=== PATIENT | female | born 1965 | race Caucasian/White ===

== ENCOUNTER 2023-04-23 12:25 | Outpatient (OUT) | payer OTHER, SELFPAY ==
[2023-04-24 11:53] LABS: BUN Creatinine Ratio 17.3; Calcium 9.2 mg/dL (8.5-10.1); Carbon Dioxide 26.1 mmol/L (21.0-32.0); Chloride 104 mmol/L (98-107); Estimated GFR (African America >60 (>=60); Estimated GFR (Non-African Ame >60 (>=60); Glucose 114 mg/dL (74-106); Potassium 4.1 mmol/L (3.5-5.1); Sodium 141 mmol/L (136-145)
== END 2023-04-23 12:26 | disposition home or self-care (01) ==
PROVIDERS: PCP Internal Medicine; Visit Provider Obstetrics & Gynecology
DX: Z01.810 Encounter for preprocedural cardiovascular examination (principal); Z01.812 Encounter for preprocedural laboratory examination; R10.2 Pelvic and perineal pain; N81.4 Uterovaginal prolapse, unspecified; N94.10 Unspecified dyspareunia
CPT/HCPCS: 36415; 80048; 80076; 85025; 85610; 85730; 86850; 86900; 86901; 93005

== ENCOUNTER 2023-04-30 06:33 | Day surgery (SDC) | payer OTHER, SELFPAY ==
--- NOTE | 2023-04-23 12:48 | ECG_ITS ---
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
[2023-04-23 13:08] VITALS: BP 110/62; PULSE 75; RESP 16; TEMP 36.4; O2SAT 95; BMI 30.7
[2023-04-23 13:34] LABS: Basophils Percent Auto 0.7 % (0.2-2.0); Eosinophils Absolute Auto 0.1 10^3/uL (0.0-0.7); Eosinophils Percent Auto 1.5 % (0.9-7.0); Hematocrit 36.1 % (36.0-48.0); Hemoglobin 11.6 g/dL (12.0-16.0); Immature Granulocytes Abs Auto 0.02 10^3/uL (0.00-0.03); Immature Granulocytes Pct Auto 0.3 % (0.0-0.5); Lymphocytes Absolute Auto 2.1 10^3/uL (1.2-3.8); Lymphocytes Percent Auto 34.1 % (20.5-60.0); Mean Corpuscular HGB Conc 32.1 g/dL (29.9-35.2); Mean Corpuscular Hemoglobin 27.8 pg (26.7-34.0); Mean Corpuscular Volume 86.6 fL (81.0-99.0); Mean Platelet Volume 9.9 fL (9.5-13.5); Monocytes Absolute Auto 0.5 10^3/uL (0.3-0.8); Monocytes Percent Auto 8.1 % (1.7-12.0); Neutrophils Absolute Auto 3.3 10^3/uL (1.4-6.5); Neutrophils Percent Auto 55.3 % (43.0-75.0); Platelet Count 251 10^3/uL (150-450); Red Blood Count 4.17 10^6/uL (4.20-5.40); Red Cell Distribution Width 14.5 % (11.0-15.0)
[2023-04-23 13:40] LABS: INR 0.93; Prothrombin Time 9.9 sec (9.0-11.6)
[2023-04-23 13:55] LABS: Partial Thromboplastin Time 26.4 sec (22.3-36.2)
[2023-04-23 14:26] LABS: Alanine Aminotransferase 25 U/L (14-59); Albumin Level 3.6 g/dL (3.4-5.0); Alkaline Phosphatase 98 U/L (46-116); Aspartate Amino Transferase 14 U/L (15-37); Bilirubin Direct 0.1 mg/dL (0.0-0.2); Bilirubin Total 0.4 mg/dL (0.2-1.0); Globulin 3.5 g/dL; Total Protein 7.1 g/dL (6.4-8.2)
[2023-04-30] VITALS (17 sets, daily range): BP systolic 142–159; BP diastolic 59–80; PULSE 72–87; RESP 6–19; TEMP 36.1–37.2; O2SAT 90–97
[2023-04-30 06:44] LABS: Basophils Absolute Auto 0.1 10^3/uL (0.0-0.1); Basophils Percent Auto 0.9 % (0.2-2.0); Eosinophils Absolute Auto 0.1 10^3/uL (0.0-0.7); Eosinophils Percent Auto 1.6 % (0.9-7.0); Hematocrit 37.8 % (36.0-48.0); Hemoglobin 12.2 g/dL (12.0-16.0); Immature Granulocytes Abs Auto 0.03 10^3/uL (0.00-0.03); Immature Granulocytes Pct Auto 0.4 % (0.0-0.5); Lymphocytes Absolute Auto 2.4 10^3/uL (1.2-3.8); Lymphocytes Percent Auto 30.5 % (20.5-60.0); Mean Corpuscular HGB Conc 32.3 g/dL (29.9-35.2); Mean Corpuscular Hemoglobin 27.7 pg (26.7-34.0); Mean Corpuscular Volume 85.7 fL (81.0-99.0); Mean Platelet Volume 9.9 fL (9.5-13.5); Monocytes Absolute Auto 0.7 10^3/uL (0.3-0.8); Monocytes Percent Auto 8.1 % (1.7-12.0); Neutrophils Absolute Auto 4.7 10^3/uL (1.4-6.5); Neutrophils Percent Auto 58.5 % (43.0-75.0); Platelet Count 275 10^3/uL (150-450); Red Blood Count 4.41 10^6/uL (4.20-5.40); Red Cell Distribution Width 14.6 % (11.0-15.0)
[2023-04-30 07:03] LABS: HCG Quantitative 6 mIU/mL
[2023-04-30 07:11] LABS: Glucometer 125 mg/dL (74-106)
[2023-04-30] MEDS: LACTATED RINGER'S SOLUTION 1,000 ML 50 ML IV (07:18)
[2023-04-30] MEDS: FAMOTIDINE/PF 20 MG/2 ML VIAL IV (07:28)
--- NOTE | 2023-04-30 07:33 | PC.NURSE ---
Dr. Salmeron informed of elevated quanatative numbers; no orders received
[2023-04-30] MEDS: SCOPOLAMINE 1 EACH PATCH.TD.3 1 PATCH TD (07:36)
[2023-04-30] MEDS: CEFAZOLIN SODIUM/DEXTROSE,ISO 2 GM/50 ML PIGGYBACK IV ×2 (07:55→16:33)
[2023-04-30] MEDS: LIDOCAINE HCL 1%-EPINEPHRINE 1:100,000 20 ML MDV INJ (08:47)
[2023-04-30] MEDS: 0.9 % SODIUM CHLORIDE 10 ML 30 ML INJ (08:48)
[2023-04-30] MEDS: ONDANSETRON PF 4 MG/2 ML VIAL IV (10:31)
[2023-04-30] MEDS: LACTATED RINGER'S SOLUTION 1,000 ML 125 ML IV (10:37)
[2023-04-30] MEDS: PROMETHAZINE HCL 25 MG/ML VIAL 12.5 MG IV (12:31)
[2023-04-30 16:24] LABS: Basophils Absolute Auto 0.1 10^3/uL (0.0-0.1); Basophils Percent Auto 0.4 % (0.2-2.0); Hematocrit 36.7 % (36.0-48.0); Hemoglobin 12.1 g/dL (12.0-16.0); Immature Granulocytes Abs Auto 0.08 10^3/uL (0.00-0.03); Immature Granulocytes Pct Auto 0.6 % (0.0-0.5); Lymphocytes Absolute Auto 0.9 10^3/uL (1.2-3.8); Lymphocytes Percent Auto 6.8 % (20.5-60.0); Mean Corpuscular Hemoglobin 27.9 pg (26.7-34.0); Mean Corpuscular Volume 84.6 fL (81.0-99.0); Mean Platelet Volume 9.9 fL (9.5-13.5); Monocytes Absolute Auto 0.4 10^3/uL (0.3-0.8); Monocytes Percent Auto 3.1 % (1.7-12.0); Neutrophils Absolute Auto 12.1 10^3/uL (1.4-6.5); Neutrophils Percent Auto 89.1 % (43.0-75.0); Platelet Count 273 10^3/uL (150-450); Red Blood Count 4.34 10^6/uL (4.20-5.40); Red Cell Distribution Width 14.3 % (11.0-15.0); White Blood Count 13.6 10^3/uL (4.0-11.0)
[2023-04-30] MEDS: IBUPROFEN 600 MG TABLET 800 MG PO (18:02)
[2023-04-30] MEDS: DOCUSATE SODIUM 100 MG CAPSULE PO (18:02)
--- NOTE | 2023-05-09 08:09 | PM.ONB ---
Brief Operative Note Date of procedure: 04/30/23 Pre-op diagnosis: uterine prolapse, vaginal fullness Post-op diagnosis: same as pre-op Procedure: NAME OF PROCEDURE: ? vNOTES hysterectomy with cystoscopy. PROCEDURE:? Patient was brought back to the operating room where she was given general anesthesia.? She was placed in the dorsolithotomy position, after being prepped and draped in a sterile fashion.? A Vargas catheter was placed.? A weighted speculum was placed posterior in the vagina.? The cervix was grasped anteriorly and posteriorly with two single tooth tenaculums and placed on traction.? A solution of Marcaine, lidocaine and epinephrine and saline was liberally infiltrated into the cervical vaginal junction.? The knife was then used to circumscribe the cervical vaginal junction and the posterior cul-de-sac was sharply entered without difficulty.? A long weighted duck tail speculum was placed and the peritoneum was tacked to the vaginal epithelium.? We then turned our attention to the uterosacral ligaments which were bilaterally cross clamped, transected and suture ligated and then were held with hemostats.? Attention was then turned to the anterior compartment, where the cervical vaginal junction was similarly divided, and the bladder was then sharply and bluntly dissected off the cervix and the lower uterine segment, and the anterior cul-de-sac was sharply entered.? The vaginal epithelium was tacked to the peritoneum.? Lateral attachments of the uterus were secured with Bekah clamps and suture ligated.? The retractors were then removed and were placed by the path inner ring anteriorly followed by posteriorly.? Once the ring was seated, the gel cap was placed and the laparoscopic ports were placed through this cap and the gas was allowed to insufflate the pelvis.? A GynLap was placed posteriorly to facilitate mobilization of the bowel, control bleeding.? This was later retrieved.? The LigaSure device was used to secure the lateral attachments of the uterus on the left side, including the cardinal ligaments and the uterine vasculature.? Once the utero-ovarian ligament was reached, we turned our attention to the right side where the LigaSure device was used to fully detach the uterus from the pelvic side wall.? Please note the ligasure was used to perform bilateral salpingectomy and oopherectomy, excellent hemostasis was noted. The ureters were seen visually; before, during and after the pedicles were created.? The ureters were bilaterally in normal locations, peristalsing. ?? Please note that the LigaSure was used on the patient?s left side to fully detach the uterus from the pelvic side wall.? The uterus was removed from the field.? The GynLap was also removed from the field.? The inner ring and gel port caps were removed and the vaginal retractors were replaced.? Lateral figure of eight sutures were placed bilaterally, where bleeding occurred, behind the ring, and no further sutures were needed.? The colpopexy was then carried out, passing a stitch posteriorly to the vaginal wall, capturing the left uterosacral ligament, going across the peritoneum posteriorly to the right and exiting out the vaginal wall posteriorly.? The vaginal cuff was closed in a single running locked stitch using 0 Monocryl, and the uterosacral ligaments were cut.? Once the vaginal cuff was fully closed, the uterosacral colpopexy stitch was then tied down tightly, elevating the vaginal cuff to the uterosacral ligaments in a satisfactory manner.? The Vargas catheter was removed and the patient was awakened and taken to recovery in excellent condition.? Sponge, lap and instruments counts correct x2.? Anesthesia: SARAN Surgeon: Pj Salmeron Funeral Service Practitioner/Embalmer: Erika Roche Estimated blood loss (mL): 100 Pathology: other (uterus, tubes and ovaries) Condition: stable Disposition: PACU
== END 2023-04-30 18:32 | disposition home or self-care (01) ==
LOC: SURGOUT 08:55 → MS 11:06
PROVIDERS: PCP Internal Medicine; Visit Provider Obstetrics & Gynecology
PROC: (CPT 58552; principal; 2023-04-30 07:45)
DX: N81.4 Uterovaginal prolapse, unspecified (principal); R10.2 Pelvic and perineal pain; N94.10 Unspecified dyspareunia; E11.9 Type 2 diabetes mellitus without complications; N72 Inflammatory disease of cervix uteri; N83.292 Other ovarian cyst, left side; N83.291 Other ovarian cyst, right side; Z79.84 Long term (current) use of oral hypoglycemic drugs; Z79.85 Long-term (current) use of injectable non-insulin antidiabetic drugs; Z98.51 Tubal ligation status
CPT/HCPCS: 58552; 36415; 82948; 84702; 85025; 88307; 94667; 94761; J2704

== ENCOUNTER 2024-01-21 13:48 | Outpatient (OUT) | payer OTHER, SELFPAY ==
--- NOTE | 2024-01-21 13:53 | MM_ITS ---
Patient Name: MEENA CALDERON MR#: [id number] : 1965 Exam Date: 01/21/2024 Ordering Doctor: DR Markell Sharma D.O. RADIOLOGY REPORT PROCEDURE: MM TOMOSYNTHESIS SCREENING BI COMPARISON: MG MAMM SCREEN 3D MARC CAD, 05/24/2021. MG MAMM SCREEN 3D MARC CAD, 10/08/2022. INDICATIONS: Screening Calculator Name NCI Breast Cancer Risk Assessment Tool 5 Year Breast Cancer Risk 1.20% Lifetime Breast Cancer Risk 6.70% Personal Breast Cancer No Personal Ovarian Cancer No Treatments None Family Cancers Grandfather-maternal with bone cancer at age 58. LOCATION: [facility] BREAST COMPOSITION: The breasts are heterogeneously dense,which may obscure small masses. FINDINGS: DIAGNOSTIC CATEGORY 2--BENIGN FINDING. NO CHANGE FROM COMPARISON. Scattered benign-appearing calcifications are present. Scattered benign-appearing lymph nodes are present. RIGHT BREAST: No significant suspicious finding. LEFT BREAST: No significant suspicious finding. RECOMMENDATIONS: ROUTINE MAMMOGRAM AND CLINICAL EVALUATION IN 12 MONTHS. PLEASE NOTE: A NORMAL MAMMOGRAM DOES NOT EXCLUDE THE POSSIBILITY OF BREAST CANCER. A CLINICALLY SUSPICIOUS PALPABLE LUMP SHOULD BE BIOPSIED. Dictated by: Cory Aguilera MD on 01/21/2024 at 15:40 Approved by: Cory Aguilera MD on 01/21/2024 at 15:41
== END 2024-01-21 13:49 | disposition home or self-care (01) ==
LOC: MAMMO 13:49
PROVIDERS: PCP Internal Medicine; Visit Provider Internal Medicine
DX: Z00.00 Encounter for general adult medical examination without abnormal findings (principal); Z12.31 Encounter for screening mammogram for malignant neoplasm of breast; Z80.8 Family history of malignant neoplasm of other organs or systems
CPT/HCPCS: 77063; 77067

== ENCOUNTER 2025-02-02 14:25 | Outpatient (OUT) | payer OTHER, SELFPAY ==
--- OUTSIDE RECORDS SUMMARY | 2025-02-02 14:27 | XMS_ITS | Clinical Summary ---
Author Organization [facility] Address [address] [place] [address] Care Team Providers Care Local Delivery Driver Name Role Phone Markell Sharma DO Primary Care Provider [phone] Allergies No known active allergies Medications dulaglutide (Trulicity) 0.75 MG/0.5ML solution pen-injector Trulicity Active metFORMIN (Glucophage) 1000 MG tablet 1 (one) time each day at the same time. Active Active Problems Problem Noted Date Diagnosed Date Equinus contracture of right ankle 02/18/2023 Hallux valgus (acquired), right foot 02/18/2023 Vaginal prolapse without uterine prolapse 2022 Family History Medical History Relation Name Comments Diabetes Maternal Grandmother Diabetes Mother Relation Name Status Comments Maternal Grandmother Mother Social History Tobacco Use Types Packs/Day Years Used Date Smoking Tobacco: Never Tobacco Cessation:Counseling Given: Not Answered Alcohol Use Standard Drinks/Week Comments Yes 0 (1 standard drink = 0.6 oz pure alcohol) 6 or moredrinks less than monthly; 3 or 4 drinks on typical day. Caffeine: 1-2 cups/day Comments Unknown Sex and Gender Information Value Date Recorded Sex Assigned at Not on file Legal Sex Female 8:22 PM EDT Gender Identity Not on file Sexual Orientation Not on file Last Filed Vital Signs Vital Sign Reading Time Taken Comments Blood Pressure 112/60 05/13/2023 2:47 PM EDT Pulse - - Temperature - - Respiratory Rate - - Oxygen Saturation - - Inhaled Oxygen Concentration - - Weight 66 kg (145 lb 6.4 oz) 06/11/2023 1:40 PM EDT Height 154.9 cm (5' 1 ) 06/11/2023 1:40 PM EDT Body Mass Index 27.47 06/11/2023 1:40 PM EDT Plan of Treatment Not on file Insurance [employer] Care Teams Local Delivery Driver Relationship Specialty Start Date End Date Markell Sharma DO PCP - General Internal Medicine 04/02/23
--- OUTSIDE RECORDS SUMMARY | 2025-02-02 14:27 | XMS_ITS | Encounter Summary ---
Author Organization [facility] Address [address] [place] [address] Care Team Providers Care Licensed Certified Orthotist Name Role Phone Markell Sharma DO Primary Care Provider [phone] Encounter Details Date Type Department Care Team (Late st Contact Info) Description 07/04/2016 FollowUp Telephone Encounter [facility] General Surgery [address] [place] [address] Lashae Fall RN Social History Tobacco Use Types Packs/Day Years Used Date Smoking Tobacco: Never Alcohol Use Standard Drinks/Week Comments No 0 (1 standard drink = 0.6 oz pur e alcohol) Comments No Sex and Gender Information Value Date Recorded Sex Assigned at Not on file Legal Sex Female 12:36 PM EDT Gender Identity Not on file Sexual Orientation Not on file documented as of this encounter Plan of Treatment Not on file documented as of this encounter Visit Diagnoses Not on filedocumented in this encounter Care Teams Licensed Certified Orthotist Relationship Specialty Start Date End Date Markell Sharma DO PCP - General 06/27/16 documented as of this encounter
--- OUTSIDE RECORDS SUMMARY | 2025-02-02 14:27 | XMS_ITS | Encounter Summary ---
Author Organization [facility] Address [address] [address] Care Team Providers Care Engineering Program Manager Name Role Phone Makrell Sharma DO Primary Care Provider [phone] Encounter Details Date Type Department Care Team (Late st Contact Info) Description 06/28/2016 PAT Telephone [facility] Pre-Admit Testing [address] [place] [address] Fady Peralta RN Social History Tobacco Use Types Packs/Day [...] on file documented as of this encounter Last Filed Vital Signs Vital Sign Reading Time Taken Comments Blood Pressure - - Pulse - - Temperature - - Respiratory Rate - - Oxygen Saturation - - Inhaled Oxygen Concentration - - Weight 61.7 kg (136 lb) 06/28/2016 2:31 PM EDT Height 147.3 cm (4' 10 ) 06/28/2016 2:31 PM EDT Body Mass Index 28.42 06/28/2016 2:31 PM EDT documented in this encounter Plan of Treatment Not on file documented as of this encounter Visit Diagnoses Not on filedocumented in this encounter Care Teams Engineering Program Manager Relationship Specialty Start Date End Date Markell Sharma DO PCP - General 06/27/16 documented as of this encounter
--- OUTSIDE RECORDS SUMMARY | 2025-02-02 14:27 | XMS_ITS | Clinical Summary ---
Author Organization [facility] 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 08/03/2019 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 08/03/2019 Proliferative diabetic retinopathy of both eyes 07/02/2016 Vitreous hemorrhage, left eye 07/02/2016 Family History Medical History Relation Name Comments Diabetes Mother Diabetes Paternal Grandfather Relation Name Status Comments Father Alive Mother Alive Paternal Grandfather Social History Tobacco Use Types Packs/Day Years Used Date Smoking Tobacco: Never Smokeless Tobacco: Never Alcohol Use Standard Drinks/Week Comments No 0 (1 standard drink = 0.6 oz pur e alcohol) Comments No Sex and Gender Information Value Date Recorded Sex Assigned at Not on file Legal Sex Female 12:36 PM EDT Gender Identity Not on file Sexual Orientation Not on file Last Filed Vital Signs Vital Sign Reading Time Taken Comments Blood Pressure 118/53 08/03/2019 9:45 AM EST Pulse 82 08/03/2019 9:45 AM EST Temperature 36.6 C (97.9 F) 08/03/2019 9:45 AM EST Respiratory Rate 16 08/03/2019 9:45 AM EST Oxygen Saturation 96% 08/03/2019 9:45 AM EST Inhaled Oxygen Concentration - - Weight 65.1 kg (143 lb 8 oz) 08/03/2019 6:37 AM EST Height 147.3 cm (4' 10 ) 08/03/2019 6:37 AM EST Body Mass Index 29.99 08/03/2019 6:37 AM EST Plan of Treatment Not on file Insurance [employer] Care Teams Dental Assistant Relationship Specialty Start Date End Date Markell Sharma DO PCP - General 06/27/16
--- NOTE | 2025-02-02 14:28 | MM_ITS ---
Patient Name: MEENA CALDERON MR#: [id number] : 1965 Exam Date: 02/02/2025 Ordering Doctor: DR DANTE CABELLO D.O. RADIOLOGY REPORT PROCEDURE: MM TOMOSYNTHESIS SCREENING BI COMPARISON: MM TOMOSYNTHESIS SCREENING BI, 01/21/2024. MG MAMM SCREEN 3D MARC CAD, 10/08/2022. MG MAMM SCREEN 3D MARC CAD, 05/24/2021. MG MAMM MARC SCRN W CAD DIG, 11/13/2012. INDICATIONS: Screening for malignant neoplasm Calculator Name NCI Breast Cancer Risk Assessment Tool 5 Year Breast Cancer Risk 1.30% Lifetime Breast Cancer Risk 6.60% Personal Breast Cancer No Personal Ovarian Cancer No Treatments None Family Cancers Grandfather-maternal with bone cancer at age 58. LOCATION: [facility] BREAST COMPOSITION: The breasts are heterogeneously dense,which may obscure small masses. FINDINGS: RIGHT BREAST: No significant suspicious finding. Benign-appearing lymph nodes are present along with chest wall. LEFT BREAST: No significant suspicious finding. Similar focal asymmetries are noted. Benign-appearing calcifications are present. Benign-appearing lymph nodes are present along the chest wall. DIAGNOSTIC CATEGORY 2--BENIGN FINDING: RECOMMENDATIONS: ROUTINE MAMMOGRAM AND CLINICAL EVALUATION IN 12 MONTHS. PLEASE NOTE: A NORMAL MAMMOGRAM DOES NOT EXCLUDE THE POSSIBILITY OF BREAST CANCER. A CLINICALLY SUSPICIOUS PALPABLE LUMP SHOULD BE BIOPSIED. Dictated by: Sonny Guzman MD on 02/03/2025 at 10:06 Approved by: Sonny Guzman MD on 02/03/2025 at 10:15
--- OUTSIDE RECORDS SUMMARY | 2025-02-02 14:29 | XMS_ITS | Encounter Summary ---
Author Organization [facility] Address [address] [facility] [place] [address] Care Team Providers Care Sales Correspondence Clerk Name Role Phone Markell Sharma DO Primary Care Provider [phone] Encounter Details Date Type Department Care Team (Late st Contact Info) Description 05/07/2023 Abstract [facility] [address] [place] [address] Faina Jackson PA [address] [place] [address] Social History Tobacco Use Types Packs/Day Years Used Date Smoking Tobacco: Never Alcohol Use Standard Drinks/Week Comments Yes 0 [...] on filedocumented in this encounter Care Teams Sales Correspondence Clerk Relationship Specialty Start Date End Date Markell Sharma DO PCP - General Internal Medicine 04/02/23 documented as of this encounter
--- OUTSIDE RECORDS SUMMARY | 2025-02-02 14:29 | XMS_ITS | Encounter Summary ---
Author Organization [facility] Address [address] [place] [address] Care Team Providers Care Fabrication Mig Welder Name Role Phone Markell Sharma DO Primary Care Provider [phone] Encounter Details Date Type Department Care Team (Late st Contact Info) Description 04/30/2023 Abstract [facility] [address] [place] [address] Pj Salmeron DO [address] [place] [address] Social History Tobacco Use Types Packs/Day [...] on filedocumented in this encounter Care Teams Fabrication Mig Welder Relationship Specialty Start Date End Date Markell Sharma DO PCP - General Internal Medicine 04/02/23 documented as of this encounter
== END 2025-02-02 14:26 | disposition home or self-care (01) ==
LOC: MAMMO 14:25
PROVIDERS: PCP Internal Medicine; Visit Provider Internal Medicine
DX: Z12.31 Encounter for screening mammogram for malignant neoplasm of breast (principal); Z80.8 Family history of malignant neoplasm of other organs or systems
CPT/HCPCS: 77063; 77067

== ENCOUNTER 2025-03-02 11:23 | Outpatient (OUT) | payer OTHER, SELFPAY ==
--- OUTSIDE RECORDS SUMMARY | 2025-03-02 11:28 | XMS_ITS | Encounter Summary ---
Author Organization [facility] Address [address] [place] [address] Care Team Providers Care Telephone Sterilizer Name Role Phone Markell Sharma DO Primary Care Provider [phone] Encounter Details Date Type Department Care Team (Late st Contact Info) Description 06/28/2016 PAT Telephone [facility] Pre-Admit Testing [address] [place] [address] Fady Peralta RN Social History Tobacco Use [...] on filedocumented in this encounter Care Teams Telephone Sterilizer Relationship Specialty Start Date End Date Markell Sharma DO PCP - General 06/27/16 documented as of this encounter
--- OUTSIDE RECORDS SUMMARY | 2025-03-02 11:28 | XMS_ITS | Encounter Summary ---
Author Organization [facility] Address [address] [place] [address] Care Team Providers Care Fire Alarm Mechanic Name Role Phone Markell Sharma DO Primary Care Provider [phone] Encounter Details Date Type Department Care Team (Late st Contact Info) Description 07/04/2016 FollowUp Telephone Encounter [facility] General Surgery [address] [place] [address] Lashae Fall RN Social History Tobacco Use [...] on filedocumented in this encounter Care Teams Fire Alarm Mechanic Relationship Specialty Start Date End Date Markell Sharma DO PCP - General 06/27/16 documented as of this encounter
--- OUTSIDE RECORDS SUMMARY | 2025-03-02 11:28 | XMS_ITS | Clinical Summary ---
Author Organization [facility] Address [address] [place] [address] Care Team Providers Care Economic Research Assistant Name Role Phone Marekll Sharma DO Primary Care Provider [phone] Allergies No known active allergies Medications metFORMIN [...] on file Insurance [employer] Care Teams Economic Research Assistant Relationship Specialty Start Date End Date Markell Sharma DO PCP - General 06/27/16
--- OUTSIDE RECORDS SUMMARY | 2025-03-02 11:28 | XMS_ITS | Clinical Summary ---
Author Organization [facility] Address [address] [place] [address] Care Team Providers Care Policewoman Name Role Phone Markell Sharma DO Primary Care Provider [phone] Allergies No known active allergies Medications dulaglutide [...] on file Insurance [employer] Care Teams Policewoman Relationship Specialty Start Date End Date Markell Sharma DO PCP - General Internal Medicine 04/02/23
--- OUTSIDE RECORDS SUMMARY | 2025-03-02 11:29 | XMS_ITS | Encounter Summary ---
Author Organization [facility] Address [address] [place] [address] Care Team Providers Care Manager Mall Name Role Phone Markell Sharma DO Primary Care Provider [phone] Encounter Details Date Type Department Care Team (Late st Contact Info) Description 04/30/2023 Abstract [facility] OB [address] [place] [address] Pj Salmeron DO [address] [place] [address] Social History Tobacco Use Types Packs/Day [...] on filedocumented in this encounter Care Teams Manager Mall Relationship Specialty Start Date End Date Markell Sharma DO PCP - General Internal Medicine 04/02/23 documented as of this encounter
--- OUTSIDE RECORDS SUMMARY | 2025-03-02 11:29 | XMS_ITS | Encounter Summary ---
Author Organization [facility] Address [address] [facility] [place] [address] Care Team Providers Care Section Gang Worker Name Role Phone Markell Sharma DO Primary Care Provider [phone] Encounter Details Date Type Department Care Team (Late st Contact Info) Description 05/07/2023 Abstract [facility] BCP OB [address] [place] [address] Faina Jackson PA [address] [place] [address] Social History Tobacco Use Types Packs/Day [...] on filedocumented in this encounter Care Teams Section Gang Worker Relationship Specialty Start Date End Date Markell Sharma DO PCP - General Internal Medicine 04/02/23 documented as of this encounter
[2025-03-02 12:06] LABS: Hematocrit 39.6 % (36.0-48.0); Hemoglobin 13.0 g/dL (12.0-16.0); Immature Granulocytes Abs Auto 0.03 10^3/uL (0.00-0.03); Immature Granulocytes Pct Auto 0.4 % (0.0-0.5); Lymphocytes Absolute Auto 1.9 10^3/uL (1.2-3.8); Mean Corpuscular HGB Conc 32.8 g/dL (29.9-35.2); Mean Corpuscular Hemoglobin 28.3 pg (26.7-34.0); Mean Corpuscular Volume 86.1 fL (81.0-99.0); Platelet Count 276 10^3/uL (150-450); Red Blood Count 4.60 10^6/uL (4.20-5.40); White Blood Count 6.7 10^3/uL (4.0-11.0)
[2025-03-02 12:41] LABS: Anion Gap 13.6; Carbon Dioxide 28.5 mmol/L (21.0-32.0); Chloride 105 mmol/L (98-107); Glucose 112 mg/dL (74-106); Potassium 4.1 mmol/L (3.5-5.1); Sodium 143 mmol/L (136-145)
[2025-03-02 12:42] LABS: Alanine Aminotransferase 23 U/L (14-59); Albumin Globulin Ratio 1.1; Albumin Level 3.7 g/dL (3.4-5.0); Alkaline Phosphatase 91 U/L (46-116); Aspartate Amino Transferase 12 U/L (15-37); Blood Urea Nitrogen 15.0 mg/dL (7.0-18.0); Calcium 9.4 mg/dL (8.5-10.1); Cholesterol 186 mg/dL (<=200); Estimated GFR (African America >60 (>=60 mL/min/1.73m^2); Estimated GFR (Non-African Ame >60 (>=60 mL/min/1.73m^2); Globulin 3.4 g/dL; HDL Cholesterol 69 mg/dL (40-60); Total Protein 7.1 g/dL (6.4-8.2); Triglycerides 74 mg/dL (<=150); VLDL CHOLESTEROL 14.8 mg/dL
[2025-03-02 12:43] LABS: Thyroid Stimulating Hormone 0.924 uIU/mL (0.358-3.740)
== END 2025-03-02 11:24 | disposition home or self-care (01) ==
LOC: LAB 11:26
PROVIDERS: PCP Internal Medicine; Visit Provider Internal Medicine
DX: Z00.00 Encounter for general adult medical examination without abnormal findings (principal)
CPT/HCPCS: 36415; 80053; 80061; 82043; 82570; 83036; 84443; 85025

== ENCOUNTER 2025-08-29 10:49 | Outpatient (OUT) | payer OTHER, SELFPAY ==
--- OUTSIDE RECORDS SUMMARY | 2025-08-29 10:53 | XMS_ITS | Patient Health Record ---
Author Organization [facility] [place] Address [address] [place] [address] Care Team Providers Care Insurance Claims Processor Name Role Phone Markell Sharma DO Primary Care Provider Unavaila ble Reason For Referral No Information Plan Of Treatment No Information Insurance Providers Payer Name Payer Address Payer Phone Subscriber Number Group Number Insured Name Patient Relationship to Insured Coverage Start Date Coverage End Date [employer] [address] [place] [address] [id number] Shruti Mancia Self - patient is the insured 4
--- OUTSIDE RECORDS SUMMARY | 2025-08-29 10:53 | XMS_ITS | Clinical Summary ---
Author Organization [facility] Address [address] [place] [address] Care Team Providers Care Ball Truing Machine Operator Name Role Phone Markell Sharma DO Primary Care Provider [phone] Allergies No known active allergies Medications MedicationSigDispense QuantityRefillsLast FilledStart DateEnd DateStatus dulaglutide (Trulicity) 0.75 MG/0.5ML solution pen-injector TrulicityActive metFORMIN (Glucophage) 1000 MG tablet 1 (one) time each day at the same time.Active Active Problems ProblemNoted DateDiagnosed DateEquinus contracture of right ankle02/18/2023 Hallux valgus (acquired), right foot02/18/2023Vaginal prolapse without uterine llaqmbgm09/20/2023 Family History Medical HistoryRelationNameCommentsDiabetesMaternal GrandmotherDiabetesMother RelationNameStatusCommentsMaternal GrandmotherMother Social History Tobacco UseTypesPacks/DayYears UsedDateSmoking Tobacco: Never Tobacco Cessation:Counseling Given: Not Answered Alcohol UseStandard Drinks/WeekCommentsYes0 (1 standard drink = 0.6 oz pure alcohol)6 or moredrinks less than monthly; 3 or 4 drinks on typical day. Caffeine: 1-2 cups/dayCommentsUnknownSex and Gender InformationValueDate RecordedSex Assigned at BirthNot on fileLegal WzjVqfxou78/15/2023 8:22 PM EDT Gender IdentityNot on fileSexual OrientationNot on file Last Filed Vital Signs Vital SignReadingTime TakenCommentsBlood Vmvnzori891/6009/08/2023 2:47 PM EDT Pulse--Temperature--Respiratory Rate--Oxygen Saturation--Inhaled Oxygen Concentration--Ksvdjy65 kg (145 lb 6.4 oz)06/11/2023 1:40 PM KVBNggqne738.9 cm (5' 1 )06/11/2023 1:40 PM EDTBody Mass Index27.4706/11/2023 1:40 PM EDT Plan of Treatment Not on file Insurance MemberSubscriberPlan / Payer (Effective 2022-Present)Name:Shruti Mancia Relation to Subscriber:SelfName:Shruti Mancia Payer ID:Not on file Type:Not on file Address: [place] [id number] Care Teams Team MemberRelationshipSpecialtyStart DateEnd Date Markell Sharma DO PCP - GeneralInternal Medicine04/02/23
--- NOTE | 2025-08-29 11:08 | XR_ITS ---
The [address] [address] Patient Name: MEENA CALDERON MRN: [id number] date: 1965 Sex: F Assigned Patient Location: [facility] Current Patient Location: [facility] Accession/Order Number: [id number] Exam Date: 08/29/2025 11:00 Report Date: 08/29/2025 11:20 At the request of: DANTE CABELLO DO Procedure: XR chest 2V PA AND LATERAL CHEST: CLINICAL HISTORY: Cough and bodyaches COMPARISON: None There is no focal parenchymal consolidation, effusion or pneumothorax. The cardiac, hilar and mediastinal silhouettes are within normal limits. There is no vascular congestion. The visualized bony thorax is intact. Subtle dextroscoliotic curvature and minor endplate spurring are seen. XR/XR chest 2V IMPRESSION: NO ACUTE CARDIOPULMONARY ABNORMALITY. Impression dictated by: Genie Solano M.D. 08/29/2025 11:20 AM Dictation Location: [place] [address] Electronically authenticated by: [id number] Y Date: 08/29/2025 11:20
== END 2025-08-29 10:50 | disposition home or self-care (01) ==
LOC: RAD 10:50
PROVIDERS: PCP Internal Medicine; Visit Provider Internal Medicine
DX: R05.9 Cough, unspecified (principal)
CPT/HCPCS: 71046